=== PATIENT | male | born 1970 | race Caucasian/White ===

== ENCOUNTER 2020-09-22 07:54 | Outpatient (REF) | payer OTHER, SELFPAY ==
[2020-09-22 09:44] LABS: MANUAL DIFF FLAG NO
[2020-09-22 09:56] LABS: Basophils Percent Auto 0.4 % (0-2); Eosinophils Absolute Auto 0.1 X10*3/uL (0.0-0.4); Eosinophils Percent Auto 1.3 % (0-4); Hematocrit 43.7 % (42-52); Hemoglobin 13.9 g/dl (14.0-18.0); Imm Gran Abs Auto 0.01 X10*3/uL (0.00-0.03); Imm Gran Pct Auto 0.2 % (0.0-0.4); Lymphocytes Absolute Auto 1.7 X10*3/uL (1.2-4.9); Lymphocytes Percent Auto 37.3 % (20-40); Mean Corpuscular HGB Conc 31.8 g/dl (31.0-36.0); Mean Corpuscular Hemoglobin 28.8 pg (27.0-33.0); Mean Corpuscular Volume 90.5 fL (80-98); Mean Platelet Volume 11.3 fL (9.4-12.4); Monocytes Absolute Auto 0.5 X10*3/uL (0.1-1.2); Monocytes Percent Auto 10.2 % (2-11); Neutrophils Absolute Auto 2.3 X10*3/uL (2.0-8.3); Neutrophils Percent Auto 50.6 % (45-73); Platelet Count 170 X10*3/uL (160-400); Red Blood Count 4.83 X10*6/uL (4.60-5.80); White Blood Count 4.5 X10*3/uL (4.8-10.8)
[2020-09-22 10:14] LABS: Alanine Aminotransferase 16 U/L (0-40); Albumin Level 4.5 g/dL (3.5-5.0); Alkaline Phosphatase 115 U/L (39-117); Anion Gap 14 (12-20); Aspartate Amino Transferase 17 U/L (5-37); Bilirubin Total 0.8 mg/dL (0.0-1.0); Blood Urea Nitrogen 17 mg/dL (9-16); Calcium 9.9 mg/dL (8.4-10.2); Carbon Dioxide 27 mmol/L (22-29); Chloride 105 mmol/L (96-108); Cholesterol 152 mg/dL; Estimated Glomerular Filt Rate > 60; Glucose Random 91 mg/dL (60-115); HDL Cholesterol 62 mg/dL; LDL Cholesterol Calculated 84 mg/dl; Potassium 4.7 mmol/L (3.3-5.1); Sodium 141 mmol/L (135-145); Total Protein 6.9 g/dL (6.5-8.0); Triglycerides 34 mg/dL
[2020-09-22 10:22] LABS: Iron 110 mcg/dL (45-160); Percent Iron Saturation 37 % (15-50); Total Iron Binding Capacity 300 mcg/dL (228-428); Unsaturated Iron Binding 190 ug/dL
[2020-09-22 10:24] LABS: Vitamin D 25-OH Total 37.4 ng/mL (>30)
[2020-09-22 10:27] LABS: Uric Acid 7.6 mg/dL (3.4-7.0)
[2020-09-22 10:35] LABS: Prostate Specific Antigen Scr 0.09 ng/mL (<0.05-4.0); Thyroid Stimulating Hormone 1.59 uIU/mL (0.32-4.0)
[2020-09-22 10:36] LABS: Folate 12.9 ng/mL (> or = 4.0); Vitamin B12 225 pg/mL (200-900)
[2020-09-22 10:36] LABS: Creatinine Urine 19.83 mg/dL; Total Protein Urine Random < 7 mg/dL (<12)
== END 2020-09-22 07:55 | disposition home or self-care (01) ==
LOC: HO.LAB 07:54
PROVIDERS: Absent Provider Internal Medicine; PCP Internal Medicine; Visit Provider Internal Medicine Nephrology
DX: E66.9 Obesity, unspecified (principal); E78.00 Pure hypercholesterolemia, unspecified; R80.9 Proteinuria, unspecified; Z12.5 Encounter for screening for malignant neoplasm of prostate
CPT/HCPCS: 36415; 80053; 80061; 82306; 82607; 82746; 83540; 84153; 84156; 84439; 84443; 84550; 85025

== ENCOUNTER 2022-02-24 09:26 | Outpatient (REF) | payer OTHER, SELFPAY ==
[2022-02-24 09:40] LABS: MANUAL DIFF FLAG NO
[2022-02-24 10:21] LABS: Basophils Percent Auto 0.5 % (0-2); Eosinophils Absolute Auto 0.1 X10*3/uL (0.0-0.4); Eosinophils Percent Auto 1.4 % (0-4); Hematocrit 45.9 % (42.0-52.0); Hemoglobin 14.8 g/dl (14.0-18.0); Imm Gran Abs Auto 0.01 X10*3/uL (0.00-0.03); Imm Gran Pct Auto 0.2 % (0.0-0.4); Lymphocytes Absolute Auto 2.2 X10*3/uL (1.2-4.9); Lymphocytes Percent Auto 37.1 % (20-40); Mean Corpuscular HGB Conc 32.2 g/dl (31.0-36.0); Mean Corpuscular Hemoglobin 29.1 pg (27.0-33.0); Mean Corpuscular Volume 90.2 fL (80.0-98.0); Mean Platelet Volume 10.8 fL (9.4-12.4); Monocytes Absolute Auto 0.5 X10*3/uL (0.1-1.2); Monocytes Percent Auto 8.4 % (2-11); Neutrophils Percent Auto 52.4 % (45-73); Platelet Count 180 X10*3/uL (160-400); Red Blood Count 5.09 X10*6/uL (4.60-5.80); White Blood Count 5.8 X10*3/uL (4.8-10.8)
[2022-02-24 11:50] LABS: Alanine Aminotransferase 19 U/L (0-40); Alkaline Phosphatase 106 U/L (39-117); Anion Gap 12 (12-20); Aspartate Amino Transferase 18 U/L (5-37); Bilirubin Total 0.9 mg/dL (0.0-1.0); Blood Urea Nitrogen 24 mg/dL (9-16); Calcium 10.2 mg/dL (8.4-10.2); Carbon Dioxide 27 mmol/L (22-29); Chloride 106 mmol/L (96-108); Cholesterol 184 mg/dL; Estimated Glomerular Filt Rate > 60; Glucose Random 86 mg/dL (60-115); HDL Cholesterol 61 mg/dL; Potassium 4.6 mmol/L (3.3-5.1); Sodium 140 mmol/L (135-145)
[2022-02-24 12:02] LABS: Folate 13.6 ng/mL (> or = 4.0); Vitamin B12 256 pg/mL (200-900)
[2022-02-24 13:03] LABS: Albumin Level 4.7 g/dL (3.5-5.0); LDL Cholesterol Calculated 113 mg/dl; Triglycerides 54 mg/dL
[2022-02-24 13:28] LABS: Free T4 (Free Thyroxine) 1.03 ng/dL (0.71-1.85); Thyroid Stimulating Hormone 1.93 uIU/mL (0.32-4.0)
== END 2022-02-24 09:27 | disposition home or self-care (01) ==
LOC: HO.LAB 09:26
PROVIDERS: PCP Internal Medicine; Visit Provider Internal Medicine
DX: E66.9 Obesity, unspecified (principal); E78.00 Pure hypercholesterolemia, unspecified; Z12.5 Encounter for screening for malignant neoplasm of prostate
CPT/HCPCS: 36415; 80053; 80061; 82607; 82746; 84153; 84439; 84443; 85025

== ENCOUNTER 2022-09-27 16:59 | Outpatient (AMB) | payer OTHER, SELFPAY ==
[2022-09-27 17:08] VITALS: BP 134/72; PULSE 59; O2SAT 98; BMI 34.3
--- NOTE | 2022-09-27 17:08 | A.OFFPC_ITS ---
Vital Signs 09/27/22 17:08 Height 5 ft 11 in Weight 246 lb BMI 34.3 BP 134/72 Blood Pressure Location Lt brachial Position Sitting Pulse 59 Pulse Source Pulse Oximeter Pulse Oximetry (%) 98 Oxygen Delivery Method Room Air Intake Visit Reasons: Annual Physical Allergies No Known Allergies [No Known Allergies*] Allergy (Verified 09/27/22 17:09) Medication List - Last Reconciled 09/27/22 by Jaspreet Chowdhury MD cholecalciferol (vitamin D3) 1,250 mcg PO QWEEK cyanocobalamin (vitamin B-12) 1,000 mcg PO DAILY tramadol 50 mg PO BID PRN Tobacco use date assessed: 03/29/22 Dental Screening Dental Screen Date: 09/27/22 Did you have a dental visit in the last 12 months?: Yes Did you have a dental problem in the last 6 months where you did not have access to dental care?: No Was dental information given to patient?: Patient has dentist HPI Annual Physical HPI Details 52-year-old obese male with osteoarthritis of the knee and hip and vitamin B12 deficiency coming in for physical exam last seen in March 2022. noted 40 lbs [facility] Medical History (Updated 09/27/22 @ 17:11 by Jaspreet Chowdhury MD) Atrophy, kidney Bilateral inguinal hernia Congenital deformity Dextrocardia Hyperparathyroidism Hypertension Hypogonadism Migraine Obesity (BMI 30-39.9) Patellofemoral arthralgia of right knee Travel advice encounter Vitamin D deficiency Surgical History Hx of tonsillectomy Family History (Updated 09/27/22 @ 17:27 by Jaspreet Chowdhury MD) Maternal Grandmother Lung cancer Social History (Updated 09/27/22 @ 17:27 by Jaspreet Chowdhury MD) Housing: House Alcohol intake: current Alcohol intake frequency: holidays/special occasions only Patient Tobacco Use Status: Former Tobacco user Tobacco use type: Cigarette Years Smoked: quit 23 years old e-Cigarette/Vaping Use: Never Used Second Hand Smoke Exposure: No service: No Current occupational status: unemployed Cognitive needs: No Hearing needs: No Vision needs: Yes (wearing contacts) Questionnaire PHQ-9 Over the last 2 weeks, how often have you been bothered by any of the following problems? 1. Little interest or pleasure in doing things: not at all 2. Feeling down, depressed, or hopeless: not at all 3. Trouble falling or staying asleep, or sleeping too much: not at all 4. Feeling tired or having little energy: not at all 5. Poor appetite or overeating: not at all 6. Feeling bad about yourself - or that you are a failure or have let yourself or your family down: not at all 7. Trouble concentrating on things, such as reading the newspaper or watching television: not at all 8. Moving or speaking so slowly that other people could have noticed. Or the opposite - being so fidgety or restless that you have been moving around a lot more than usual: not at all 9. Thoughts that you would be better off or of hurting yourself in some wa y: not at all Total score: 0 Depression Screening Interpretation: Negative Source: Developed by Drs. Fito Lewis, Juliana Weldon, Ari Jimenez and colleagues, with an educational mary jane from [employer]. Thrive Questionnaire Date Thrive assessed: 03/29/22 AUDIT C Alcohol Use Questionnaire (AUDIT-C) 1. How often do you have a drink containing alcohol?: Monthly or less 2. How many drinks containing alcohol do you have on a typical day when you are drinking?: 1 or 2 3. How often do you have six or more drinks on one occasion?: Never Total Score: 1 JASON-7 AMB Questionnaire JASON-7 Date JASON - 7 assessed: 03/29/22 Source: Developed by Drs. Fito Lewis, Juliana Weldon, Ari Jimenez and colleagues, with an educational mary jane from [employer]. Review of Systems Const Denies poor appetite and Denies weakness Eyes Denies no additional complaints ENT Reports Normal hearing present, Denies dizziness, Denies nasal congestion, Denies tinnitus and Denies sore throat Card Denies chest pain, Denies syncope, Denies rapid heart rate and Denies dyspnea Resp Denies cough and Denies dyspnea GI Denies change in stool character, Reports constipation, Denies diarrhea, Denies nausea and Denies vomiting Denies dysuria and Denies urinary frequency Neuro Reports Normal hearing present, Denies confusion, Denies dizziness, Denies syncope and Denies weakness Psych Denies confusion Physical exam (Primary Care) Vital Signs: Last Vital Signs Pulse 59 09/27/22 17:08 BP 134/72 09/27/22 17:08 Pulse Ox 98 09/27/22 17:08 Oxygen Delivery Method Room Air 09/27/22 17:08 BMI result Body Mass Index 34.3 Tobacco/Smoking Status: Tobacco use Status Tobacco use date assessed 03/29/22 09/27/22 17:11 Patient Tobacco Use Status Former Tobacco user 09/27/22 17:11 Tobacco use type Cigarette 09/27/22 17:11 e-Cigarette/Vaping Use Never Used 09/27/22 17:11 PHQ-9: PHQ-9 Score PHQ-9: Total score 0 09/27/22 17:11 Depression Screening Interpretation: Negative Thrive Assessment: Date of Thrive Assessment Date Thrive assessed 03/29/22 09/27/22 17:11 Const General: No confusion Orientation/consciousness: No confusion HENMT Head: Yes normocephalic Ears: external ears normal and TM's normal bilaterally Face and sinus: Yes normal facial exam Mouth: moist mucous membranes Throat: Yes tonsils normal Eyes Conjunctivae: conjunctivae normal Pupils: Equal, round and reactive pupils present and Pupil accommodation reflex normal Direct Ophthalmoscopy: normal light reflex Neck Neck: No lymphadenopathy Thyroid: Thyroid normal Chest Chest palpation & inspection: normal inspection of the chest Resp Effort & Inspection: normal respiratory effort and no audible wheezes Auscultation: clear to auscultation bilaterally, no crackles, no wheezes and lung sounds not diminished Cardio Rate: regular rate Rhythm: regular rhythm Peripheral pulses: radial pulses present and dorsalis pedis present GI Other: guaiac negative prostate N Palpation (GI): no masses Auscultation: normal bowel sounds and normoactive bowel sounds Male General Exam: Yes normal external exam Skin General skin exam: no rashes or lesions noted Rashes: no rashes Neuro General: No confusion Cranial nerves: Yes Equal, round and reactive pupils present and Yes Normal hearing present Cognition (Neuro): normal cognition Gait exam (Neuro): Normal gait present Motor exam (neuro): 5/5 motor strength present throughout Deep tendon reflexes (DTR's): Right brachioradialis reflex intensity grade: 2+, Left brachioradialis reflex intensity grade: 2+, Right patellar reflex intensity grade: 2+ and Left patellar reflex intensity grade: 2+ Extrem General: No edema Assessment and Plan Assessment & Plan (1) Annual physical exam: Code(s): Z00.00 - Encounter for general adult medical examination without abnormal findings (2) Obesity (BMI 30-39.9): Code(s): E66.9 - Obesity, unspecified Plan: Diet and exercise (3) Vitamin B 12 deficiency: Code(s): E53.8 - Deficiency of other specified B group vitamins Plan: Continue with cyanocobalamin 1000 mcg once a day (4) Osteoarthritis: Code(s): M19.90 - Unspecified osteoarthritis, unspecified site Plan: Keep active lose weight, tramadol as needed Orders: Orders Vitamin B12 and Folate 4 Months E53.8 - Deficiency of other specified B group vitamins Comprehensive Met. Panel 4 Months E53.8 - Deficiency of other specified B group vitamins Lipid Panel 4 Months E53.8 - Deficiency of other specified B group vitamins, E78.00 - Pure hypercholesterolemia, unspecified Prostate Specific Antigen Scr 4 Months E53.8 - Deficiency of other specified B group vitamins Free T4 (Free Thyroxine) 4 Months E53.8 - Deficiency of other specified B group vitamins Thyroid Stimulating Hormone 4 Months E53.8 - Deficiency of other specified B group vitamins Complete Blood Count Auto Diff 4 Months E53.8 - Deficiency of other specified B group vitamins Coding Level of Care Code Est Pt Prev Care 40-64y(50435) Diagnoses Annual physical exam Z00.00 Obesity (BMI 30-39.9) E66.9 Vitamin B 12 deficiency E53.8 Osteoarthritis M19.90
== END 2022-09-27 17:52 | disposition home or self-care (01) ==
PROVIDERS: PCP Internal Medicine; Visit Provider Internal Medicine
DX: Z00.00 Encounter for general adult medical examination without abnormal findings (principal); E66.9 Obesity, unspecified; E53.8 Deficiency of other specified B group vitamins; Z68.34 Body mass index [BMI] 34.0-34.9, adult; M19.90 Unspecified osteoarthritis, unspecified site
CPT/HCPCS: 99396

== ENCOUNTER 2023-06-13 08:52 | Outpatient (REF) | payer OTHER, SELFPAY ==
[2023-06-13 09:13] LABS: MANUAL DIFF FLAG NO
[2023-06-13 10:48] LABS: Basophils Percent Auto 0.4 % (0-2); Eosinophils Absolute Auto 0.1 X10*3/uL (0.0-0.4); Eosinophils Percent Auto 1.5 % (0-4); Hematocrit 44.1 % (42.0-52.0); Hemoglobin 14.7 g/dl (14.0-18.0); Imm Gran Abs Auto 0.01 X10*3/uL (0.00-0.03); Imm Gran Pct Auto 0.2 % (0.0-0.4); Lymphocytes Absolute Auto 2.1 X10*3/uL (1.2-4.9); Lymphocytes Percent Auto 39.7 % (20-40); Mean Corpuscular HGB Conc 33.3 g/dl (31.0-36.0); Mean Corpuscular Hemoglobin 30.1 pg (27.0-33.0); Mean Corpuscular Volume 90.2 fL (80.0-98.0); Mean Platelet Volume 11.2 fL (9.4-12.4); Monocytes Absolute Auto 0.5 X10*3/uL (0.1-1.2); Monocytes Percent Auto 8.7 % (2-11); Neutrophils Absolute Auto 2.7 x10*3/uL (2.0-8.3); Neutrophils Percent Auto 49.5 % (45-73); Platelet Count 182 X10*3/uL (160-400); Red Blood Count 4.89 X10*6/uL (4.60-5.80); Red Cell Distribution Width 12.8 % (11.0-16.0); White Blood Count 5.4 X10*3/uL (4.8-10.8)
[2023-06-13 11:22] LABS: Alanine Aminotransferase 22 U/L (0-40); Albumin Level 4.4 g/dL (3.5-5.0); Alkaline Phosphatase 113 U/L (39-117); Anion Gap 11 (12-20); Aspartate Amino Transferase 17 U/L (5-37); Bilirubin Total 0.5 mg/dL (0.0-1.0); Blood Urea Nitrogen 31 mg/dL (9-16); Calcium 9.9 mg/dL (8.4-10.2); Carbon Dioxide 26 mmol/L (22-29); Chloride 107 mmol/L (96-108); Cholesterol 147 mg/dL (<200); Estimated Glomerular Filt Rate > 60; Glucose Random 86 mg/dL (60-115); HDL Cholesterol 54 mg/dL (>40); LDL Cholesterol Calculated 85 mg/dL (<100); Potassium 4.2 mmol/L (3.3-5.1); Sodium 140 mmol/L (135-145); Triglycerides 42 mg/dL (<150)
[2023-06-13 11:37] LABS: Free T4 (Free Thyroxine) 0.94 ng/dL (0.71-1.85); Thyroid Stimulating Hormone 1.28 uIU/mL (0.32-4.0)
[2023-06-13 11:58] LABS: Folate 11.7 ng/mL (> or = 4.0); Prostate Specific Antigen Scr < 0.10 ng/mL (<0.05-4.0); Vitamin B12 482 pg/mL (200-900)
== END 2023-06-13 08:53 | disposition home or self-care (01) ==
LOC: HO.LAB 08:52
PROVIDERS: PCP Internal Medicine; Visit Provider Internal Medicine
DX: E53.8 Deficiency of other specified B group vitamins (principal); E78.00 Pure hypercholesterolemia, unspecified; Z12.5 Encounter for screening for malignant neoplasm of prostate
CPT/HCPCS: 36415; 80053; 80061; 82607; 82746; 84153; 84439; 84443; 85025

== ENCOUNTER 2023-06-24 08:33 | Outpatient (AMB) | payer OTHER, SELFPAY ==
--- NOTE | 2023-06-24 08:37 | A.OFFPC_ITS ---
Vital Signs 06/24/23 08:38 06/24/23 08:58 Height 5 ft 11 in Weight 256 lb BMI 35.7 BP 140/80 H 130/78 Blood Pressure Location Lt brachial Lt brachial Position Sitting Sitting Pulse 57 Pulse Source Pulse Oximeter Pulse Oximetry (%) 97 Oxygen Delivery Method Room Air Intake Visit Reasons: 6 month follow Picker And Packer Required: No Allergies No Known Allergies [No Known Allergies*] Allergy (Verified 06/24/23 08:38) Medication List - Last Reconciled 06/24/23 by Jaspreet Chowdhury MD B-complex with vitamin C 1 cap PO DAILY calcium carbonate (Calcium 600) 600 mg PO DAILY cholecalciferol (vitamin D3) 125 mcg PO DAILY cyanocobalamin (vitamin B-12) 1,000 mcg PO DAILY multivitamin 1 tab PO DAILY tramadol 50 mg PO BID PRN Tobacco use date assessed: 06/24/23 Dental Screening Dental Screen Date: 06/24/23 HPI 6 month follow HPI Details 52-year-old obese male with osteoarthrit is and vitamin B12 deficiency last seen for physical exam in September 2022. Patient's colonoscopy is up-to-date in November 2019. Review of the notes last April was seen by the arthritis treatment center due to the right shoulder pain osteoarthritis tendonitis advise d to monitor and refill on tramadol [facility] Medical History (Updated 09/27/22 @ 17:11 by Jaspreet Chowdhury MD) Bilateral inguinal hernia Dextrocardia Congenital deformity Hyperparathyroidism Migraine Hypertension Patellofemoral arthralgia of right knee Obesity (BMI 30-39.9) Hypogonadism Atrophy, kidney Vitamin D deficiency Travel advice encounter Surgical History Hx of tonsillectomy Family History (Updated 09/27/22 @ 17:27 by Jaspreet Chowdhury MD) Maternal Grandmother Lung cancer Social History (Updated 09/27/22 @ 17:27 by Jaspreet Chowdhury MD) Housing: House Alcohol intake: current Alcohol intake frequency: holidays/special occasions only Patient Tobacco Use Status: Former Tobacco user Tobacco use type: Cigarette Years Smoked: quit 23 years old e-Cigarette/Vaping Use: Never Used Second Hand Smoke Exposure: No service: No Current occupational status: unemployed Cognitive needs: No Hearing needs: No Vision needs: Yes (wearing contacts) Questionnaire Thrive Questionnaire Date Thrive assessed: 03/29/22 AUDIT C Alcohol Use Questionnaire (AUDIT-C) 1. How often do you have a drink containing alcohol?: Monthly or less 2. How many drinks containing alcohol do you have on a typical day when you are drinking?: 1 or 2 3. How often do you have six or more drinks on one occasion?: Never Total Score: 1 JASON-7 AMB Questionnaire JASON-7 Date JASON - 7 assessed: 06/24/23 Feeling nervous, anxious, or on edge: 0 = Not at all Not being able to stop or control worryin = Not at all Worrying too much about different things: 0 = Not at all Trouble relaxin = Not at all Being so restless that it is hard to sit still: 0 = Not at all Becoming easily annoyed or irritable: 0 = Not at all Feeling afraid as if something awful might happen: 0 = Not at all Total JASON-7 score (0-4 normal; 5-9 mild; 10-14 moderate; 15-21 severe): 0 Source: Developed by Drs. Fito Lewis, Juliana Weldon, Ari Jimenez and colleagues, with an educational mary jane from [employer]. Physical exam (Primary Care) Vital Signs: Last Vital Signs Pulse 57 06/24/23 08:38 BP 140/80 H 06/24/23 08:38 Pulse Ox 97 06/24/23 08:38 Oxygen Delivery Method Room Air 06/24/23 08:38 BMI result Body Mass Index 35.7 Tobacco/Smoking Status: Tobacco use Status Tobacco use date assessed 06/24/23 06/24/23 08:41 Patient Tobacco Use Status Former Tobacco user 06/24/23 08:41 Tobacco use type Cigarette 06/24/23 08:41 e-Cigarette/Vaping Use Never Used 06/24/23 08:41 Thrive Assessment: Date of Thrive Assessment Date Thrive assessed 03/29/22 06/24/23 08:41 Const General: alert; No acute distress Eyes Conjunctivae: conjunctivae normal Resp Auscultation: clear to auscultation bilaterally Cardio Rate: regular rate Rhythm: regular rhythm GI Inspection: Yes normal to inspection Extrem General: Yes normal to inspection and No edema Assessment and Plan Assessment & Plan (1) Obesity (BMI 30-39.9): Code(s): E66.9 - Obesity, unspecified Plan: Diet and exercise (2) Osteoarthritis: Code(s): M19.90 - Unspecified osteoarthritis, unspecified site Plan: Patient is presently on tramadol. Follows up with Rheumatology recently complained of shoulder pain (3) Vitamin B 12 deficiency: Code(s): E53.8 - Deficiency of other specified B group vitamins Plan: Vitamin B12 normal this time. Coding Level of Care Code Est Pt Level 4 (19164) Diagnoses Obesity (BMI 30-39.9) E66.9 Osteoarthritis M19.90 Vitamin B 12 deficiency E53.8
[2023-06-24 08:38] VITALS: BP 140/80; PULSE 57; O2SAT 97; BMI 35.7
[2023-06-24 08:58] VITALS: BP 130/78
== END 2023-06-24 09:12 | disposition home or self-care (01) ==
PROVIDERS: PCP Internal Medicine; Visit Provider Internal Medicine
DX: M19.90 Unspecified osteoarthritis, unspecified site (principal); E66.9 Obesity, unspecified; E53.8 Deficiency of other specified B group vitamins; Z68.35 Body mass index [BMI] 35.0-35.9, adult
CPT/HCPCS: 99214

== ENCOUNTER 2023-09-29 16:08 | Outpatient (AMB) | payer BC, SELFPAY ==
--- NOTE | 2023-09-29 16:23 | MHC.PC.OV ---
Vital Signs 09/29/23 16:26 Height 5 ft 11 in Weight 260 lb BMI 36.3 BP 136/78 Blood Pressure Location Lt brachial Position Sitting Pulse 70 Pulse Source Pulse Oximeter Pulse Oximetry (%) 96 Oxygen Delivery Method Room Air Intake Visit Reasons: pe Allergies No Known Allergies [No Known Allergies*] Allergy (Verified 09/29/23 16:26) Medication List - Last Reconciled 09/29/23 by Jaspreet Chowdhury MD B-complex with vitamin C 1 cap PO DAILY calcium carbonate (Calcium 600) 600 mg PO DAILY cholecalciferol (vitamin D3) 125 mcg PO DAILY cyanocobalamin (vitamin B-12) 1,000 mcg PO DAILY multivitamin 1 tab PO DAILY tramadol 50 mg PO BID PRN Tobacco use date assessed: 06/24/23 Dental Screening Dental Screen Date: 06/24/23 Did you have a dental visit in the last 12 months?: Yes Did you have a dental problem in the last 6 months where you did not have access to dental care?: No Was dental information given to patient?: Patient has dentist HPI pe HPI Details 53-year-old obese male coming in for physical exam PFSH Medical History (Updated 09/27/22 @ 17:11 by Jaspreet Chowdhury MD) Bilateral inguinal hernia Dextrocardia Congenital deformity Hyperparathyroidism Migraine Hypertension Patellofemoral arthralgia of right knee Obesity (BMI 30-39.9) Hypogonadism Atrophy, kidney Vitamin D deficiency Travel advice encounter Surgical History Hx of tonsillectomy Family History (Updated 09/27/22 @ 17:27 by Jaspreet Chowdhury MD) Maternal Grandmother Lung cancer Social History (Updated 09/29/23 @ 17:29 by Jaspreet Chowdhury MD) Housing: House Alcohol intake: current Alcohol intake frequency: holidays/special occasions only Comment: once Q 2 week 1-2 glasses Patient Tobacco Use Status: Former Tobacco user Tobacco use type: Cigarette Years Smoked: quit 23 years old e-Cigarette/Vaping Use: Never Used Second Hand Smoke Exposure: No service: No Current occupational status: unemployed Cognitive needs: No Hearing needs: No Vision needs: Yes (wearing contacts) Questionnaire PHQ-9 Over the last 2 weeks, how often have you been bothered by any of the following problems? 1. Little interest or pleasure in doing things: not at all 2. Feeling down, depressed, or hopeless: not at all 3. Trouble falling or staying asleep, or sleeping too much: not at all 4. Feeling tired or having little energy: not at all 5. Poor appetite or overeating: not at all 6. Feeling bad about yourself - or that you are a failure or have let yourself or your family down: not at all 7. Trouble concentrating on things, such as reading the newspaper or watching television: not at all 8. Moving or speaking so slowly that other people could have noticed. Or the opposite - being so fidgety or restless that you have been moving around a lot more than usual: not at all 9. Thoughts that you would be better off or of hurting yourself in some way: not at all Total score: 0 Depression Screening Interpretation: Negative Depression Screening Done: Yes Source: Developed by Drs. Fito Lewis, Juliana Weldon, Ari Jimenez and colleagues, with an educational mary jane from [employer]. Thrive Questionnaire Date Thrive assessed: 09/29/23 I am a: Patient What is your living situation today?: I have a steady place to live THRIVE Score: 0 AUDIT C Alcohol Use Questionnaire (AUDIT-C) 1. How often do you have a drink containing alcohol?: Monthly or less 2. How many drinks containing alcohol do you have on a typical day when you are drinking?: 1 or 2 3. How often do you have six or more drinks on one occasion?: Never Total Score: 1 JASON-7 AMB Questionnaire JASON-7 Date JASON - 7 assessed: 09/29/23 Feeling nervous, anxious, or on edge: 0 = Not at all Not being able to stop or control worryin = Not at all Worrying too much about different things: 0 = Not at all Trouble relaxin = Not at all Being so restless that it is hard to sit still: 0 = Not at all Becoming easily annoyed or irritable: 0 = Not at all Feeling afraid as if something awful might happen: 0 = Not at all Total JASON-7 score (0-4 normal; 5-9 mild; 10-14 moderate; 15-21 severe): 0 Source: Developed by Drs. Fito Lewis, Juliana Weldon, Ari Jimenez and colleagues, with an educational mary jane from [employer]. Review of Systems Const Denies poor appetite and Denies weakness Eyes Denies no additional complaints ENT Reports Normal hearing present, Denies dizziness, Denies nasal congestion, Denies tinnitus and Denies sore throat Card Denies chest pain, Denies syncope, Denies rapid heart rate and Denies dyspnea Resp Denies cough and Denies dyspnea GI Denies change in stool character, Reports constipation, Denies diarrhea, Denies nausea and Denies vomiting Denies dysuria and Denies urinary frequency Neuro Reports Normal hearing present, Denies confusion, Denies dizziness, Denies syncope and Denies weakness Psych Denies confusion Physical exam (Primary Care) Vital Signs: Last Vital Signs Pulse 70 09/29/23 16:26 BP 136/78 09/29/23 16:26 Pulse Ox 96 09/29/23 16:26 Oxygen Delivery Method Room Air 09/29/23 16:26 BMI result Body Mass Index 36.3 Tobacco/Smoking Status: Tobacco use Status Tobacco use date assessed 06/24/23 09/29/23 16:23 Patient Tobacco Use Status Former Tobacco user 09/29/23 16:23 Tobacco use type Cigarette 09/29/23 16:23 e-Cigarette/Vaping Use Never Used 09/29/23 16:23 PHQ-9: PHQ-9 Score PHQ-9: Total score 0 09/29/23 16:37 Depression Screening Interpretation: Negative Thrive Assessment: Date of Thrive Assessment Date Thrive assessed 09/29/23 09/29/23 16:27 Const General: No confusion Orientation/consciousness: No confusion HENID Head: Yes normocephalic Ears: external ears normal and TM's normal bilaterally Face and sinus: Yes normal facial exam Mouth: moist mucous membranes Throat: Yes tonsils normal Eyes Conjunctivae: conjunctivae normal Pupils: Equal, round and reactive pupils present and Pupil accommodation reflex normal Direct Ophthalmoscopy: normal light reflex Neck Neck: No lymphadenopathy Thyroid: Thyroid normal Chest Chest palpation & inspection: normal inspection of the chest Resp Effort & Inspection: normal respiratory effort and no audible wheezes Auscultation: clear to auscultation bilaterally, no crackles, no wheezes and lung sounds not diminished Cardio Rate: regular rate Rhythm: regular rhythm Peripheral pulses: radial pulses present and dorsalis pedis present GI Other: Guaiac negative stools prostate not there. Palpation (GI): no masses Auscultation: normal bowel sounds and normoactive bowel sounds Male General Exam: Yes normal external exam Skin General skin exam: no rashes or lesions noted Rashes: no rashes Neuro General: No confusion Cranial nerves: Yes Equal, round and reactive pupils present and Yes Normal hearing present Cognition (Neuro): normal cognition Gait exam (Neuro): Normal gait present Motor exam (neuro): 5/5 motor strength present throughout Deep tendon reflexes (DTR's): Right brachioradialis reflex intensity grade: 2+, Left brachioradialis reflex intensity grade: 2+, Right patellar reflex intensity grade: 2+ and Left patellar reflex intensity grade: 2+ Extrem General: No edema Assessment and Plan Assessment & Plan (1) Annual physical exam: Code(s): Z00.00 - Encounter for general adult medical examination without abnormal findings Plan: Patient is advised to eat healthy, keep well hydrated, keep active and have adequate sleep. (2) Obesity (BMI 30-39.9): Code(s): E66.9 - Obesity, unspecified Plan: Keep active and eat healthy Orders: Orders Comprehensive Met. Panel 1 Year E66.9 - Obesity, unspecified Complete Blood Count Auto Diff 1 Year E66.9 - Obesity, unspecified Free T4 (Free Thyroxine) 1 Year E66.9 - Obesity, unspecified Thyroid Stimulating Hormone 1 Year E66.9 - Obesity, unspecified Vitamin B12 and Folate 1 Year E66.9 - Obesity, unspecified Lipid Panel 1 Year E66.9 - Obesity, unspecified, E78.00 - Pure hypercholesterolemia, unspecified Prostate Specific Antigen Scr 1 Year E66.9 - Obesity, unspecified Coding Level of Care Code Est Pt Prev Care 40-64y(06779) Diagnoses Annual physical exam Z00.00 Obesity (BMI 30-39.9) E66.9
[2023-09-29 16:26] VITALS: BP 136/78; PULSE 70; O2SAT 96; BMI 36.3
== END 2023-09-29 17:46 | disposition home or self-care (01) ==
PROVIDERS: PCP Internal Medicine; Visit Provider Internal Medicine
DX: Z00.00 Encounter for general adult medical examination without abnormal findings (principal); E66.9 Obesity, unspecified; Z68.36 Body mass index [BMI] 36.0-36.9, adult
CPT/HCPCS: 99396

== ENCOUNTER 2023-11-23 08:57 | Outpatient (REF) | payer BC, SELFPAY ==
--- NOTE | ~2023-11-23 | XR_ITS ---
Examination: Left knee x-ray CLINICAL INDICATION: Osteoarthritis COMPARISON: None TECHNIQUE: 6 views of the left knee. FINDINGS: Moderate joint effusion. Small medial and lateral marginal osteophytes. Mild narrowing of the medial compartment. Advanced degenerative changes in the patellofemoral compartment with narrowing and hypertrophic change. Ossicles along the superolateral aspect of the patella and medial to the medial femoral condyle. XR/XR knee LT 4V IMPRESSION: Moderate joint effusion. Advanced degenerative changes in the patellofemoral compartment. This study was presented today November 23, 2023 for interpretation. Stat results provided at this time as requested by referring provider. Electronically signed by: Beth Wallace MD 11/23/2023 01:38 PM EDT
--- NOTE | ~2023-11-23 | XR_ITS ---
Examination: Left knee x-ray CLINICAL INDICATION: Osteoarthritis COMPARISON: None TECHNIQUE: 6 views of the left knee. FINDINGS: Moderate joint effusion. Small medial and lateral marginal osteophytes. Mild narrowing of the medial compartment. Advanced degenerative changes in the patellofemoral compartment with narrowing and hypertrophic change. Ossicles along the superolateral aspect of the patella and medial to the medial femoral condyle. XR/XR knee RT 4V IMPRESSION: Moderate joint effusion. Advanced degenerative changes in the patellofemoral compartment. This study was presented today November 23, 2023 for interpretation. Stat results provided at this time as requested by referring provider. Electronically signed by: Beth Wallace MD 11/23/2023 01:38 PM EDT RP
== END 2023-11-23 08:58 | disposition home or self-care (01) ==
LOC: HO.XRAY 08:57
PROVIDERS: PCP Internal Medicine; Visit Provider Internal Medicine Rheumatology
DX: M17.0 Bilateral primary osteoarthritis of knee (principal)
CPT/HCPCS: 73564

== ENCOUNTER 2024-03-08 08:39 | Outpatient (AMB) | payer BC, SELFPAY ==
[2024-03-08 08:51] VITALS: BP 138/80; PULSE 78; O2SAT 98; BMI 37.7
--- NOTE | 2024-03-08 08:51 | MHC.PC.OV ---
Vital Signs 03/08/24 08:51 Height 5 ft 11 in Weight 270 lb BMI 37.7 BP 138/80 Blood Pressure Location Lt brachial Position Sitting Pulse 78 Pulse Source Pulse Oximeter Pulse Oximetry (%) 98 Oxygen Delivery Method Room Air Intake Visit Reasons: med f/u Allergies No Known Allergies [No Known Allergies*] Allergy (Verified 03/08/24 08:51) Tobacco use date assessed: 03/08/24 Dental Screening Dental Screen Date: 03/08/24 Did you have a dental visit in the last 12 months?: Yes Did you have a dental problem in the last 6 months where you did not have access to dental care?: No Was dental information given to patient?: Patient has dentist HPI med f/u HPI Details 53-year-old obese male with bilateral knee pain coming in for follow-up. Last seen in November had some blood work done. Review of the notes has been seeing Rheumatology for the bilateral knee pain showing from the x-ray advanced degenerative disc disease with the left having moderate effusion. Patient was given tramadol for pain as well as Voltaren gel. With that patient has been transfer back to the primary care to do the pain control. Had discussion with the patient with regards to the arthritis that this is progressive and that pain control is the only way and that if the pain gets to be severe then surgery or knee replacements are done. Presently patient wants to hold off has had injections before which became temporary relief only and would like to continue on with tramadol pain medication. Otherwise patient is active and eating responsibly. [facility] Medical History (Updated 03/08/24 @ 09:18 by Jaspreet Chowdhury MD) Bilateral inguinal hernia Dextrocardia Congenital deformity Hyperparathyroidism Migraine Hypertension Patellofemoral arthralgia of right knee Obesity (BMI 30-39.9) Hypogonadism Atrophy, kidney Vitamin D deficiency Travel advice encounter Surgical History Hx of tonsillectomy Family History (Updated 09/27/22 @ 17:27 by Jaspreet Chowdhury MD) Maternal Grandmother Lung cancer Social History (Updated 09/29/23 @ 17:29 by Jaspreet Chowdhury MD) Housing: House Alcohol intake: current Alcohol intake frequency: holidays/special occasions only Comment: once Q 2 week 1-2 glasses Patient Tobacco Use Status: Former Tobacco user Tobacco use type: Cigarette Years Smoked: quit 23 years old e-Cigarette/Vaping Use: Never Used Second Hand Smoke Exposure: No service: No Current occupational status: unemployed Cognitive needs: No Hearing needs: No Vision needs: Yes (wearing contacts) Questionnaire PHQ-9 Over the last 2 weeks, how often have you been bothered by any of the following problems? 1. Little interest or pleasure in doing things: not at all 2. Feeling down, depressed, or hopeless: not at all 3. Trouble falling or staying asleep, or sleeping too much: not at all 4. Feeling tired or having little energy: not at all 5. Poor appetite or overeating: not at all 6. Feeling bad about yourself - or that you are a failure or have let yourself or your family down: not at all 7. Trouble concentrating on things, such as reading the newspaper or watching television: not at all 8. Moving or speaking so slowly that other people could have noticed. Or the opposite - being so fidgety or restless that you have been moving around a lot more than usual: not at all 9. Thoughts that you would be better off or of hurting yourself in some way: not at all Total score: 0 Depression Screening Interpretation: Negative Depression Screening Done: Yes Source: Developed by Drs. Fito Lewis, Juliana Weldon, Ari Jimenez and colleagues, with an educational mary jane from [employer]. Thrive Questionnaire Date Thrive assessed: 03/08/24 I am a: Patient What is your living situation today?: I have a steady place to live Within the past 12 months, did the food you bought not last and you didn't have the money to get more?: Never true Within the past 12 months, did you worry whether your food would run out before you got money to buy more?: Never true Do you have trouble paying for medicines?: No Do you have trouble getting transportation to medical appointments?: No Do you have trouble paying your heating and electricity bill?: No Do you have trouble taking care of your child, family member or friend?: No Do you have trouble with day-to-day activities such as bathing, preparing meals, shopping, managing finances, etc.?: No Are you currently unemployed and looking for a job?: No Are you interested in more education?: No Currently or been in a relationship where the following occur: No concerns reported THRIVE Score: 0 AUDIT C Alcohol Use Questionnaire (AUDIT-C) 1. How often do you have a drink containing alcohol?: Monthly or less 2. How many drinks containing alcohol do you have on a typical day when you are drinking?: 1 or 2 3. How often do you have six or more drinks on one occasion?: Never Total Score: 1 JASON-7 AMB Questionnaire JASON-7 Date JASON - 7 assessed: 03/08/24 Feeling nervous, anxious, or on edge: 0 = Not at all Not being able to stop or control worryin = Not at all Worrying too much about different things: 0 = Not at all Trouble relaxin = Not at all Being so restless that it is hard to sit still: 0 = Not at all Becoming easily annoyed or irritable: 0 = Not at all Feeling afraid as if something awful might happen: 0 = Not at all Total JASON-7 score (0-4 normal; 5-9 mild; 10-14 moderate; 15-21 severe): 0 Source: Developed by Drs. Fito Lewis, Juliana Weldon, rAi Jimenez and colleagues, with an educational mary jane from [employer]. Review of Systems Const Reports as per HPI Physical exam (Primary Care) Vital Signs: Last Vital Signs Pulse 78 03/08/24 08:51 BP 138/80 03/08/24 08:51 Pulse Ox 98 03/08/24 08:51 Oxygen Delivery Method Room Air 03/08/24 08:51 BMI result Body Mass Index 37.7 Tobacco/Smoking Status: Tobacco use Status Tobacco use date assessed 03/08/24 03/08/24 08:56 Patient Tobacco Use Status Former Tobacco user 03/08/24 08:56 Tobacco use type Cigarette 03/08/24 08:56 e-Cigarette/Vaping Use Never Used 03/08/24 08:56 PHQ-9: PHQ-9 Score PHQ-9: Total score 0 03/08/24 08:56 Depression Screening Interpretation: Negative Thrive Assessment: Date of Thrive Assessment Date Thrive assessed 03/08/24 03/08/24 08:56 Currently or been in a relationship where the following occur: No concerns reported Const General: alert; No acute distress Eyes Conjunctivae: conjunctivae normal Resp Auscultation: clear to auscultation bilaterally Cardio Rate: regular rate Rhythm: regular rhythm GI Inspection: Yes normal to inspection Extrem General: Yes normal to inspection and No edema Coding Level of Care Code Est Pt Level 3 (78831) Diagnoses Obesity (BMI 30-39.9) E66.9 Primary osteoarthritis of both knees M17.0 Osteoarthritis type: primary Laterality: bilateral Assessment & Plan Assessment & Plan (1) Obesity (BMI 30-39.9): Code(s): E66.9 - Obesity, unspecified Category: Medical Plan: Continue with diet and exercise (2) Knee osteoarthritis: Code(s): M17.9 - Osteoarthritis of knee, unspecified Category: Medical Qualifiers: Osteoarthritis type: primary Laterality: bilateral Qualified Code(s): M17.0 - Bilateral primary osteoarthritis of knee Plan: Discussed about tramadol and prescription made Medications: New tramadol Dr. White 50 mg PO Q6-8H PRN 180 tabs 0RF pain M17.0 - Bilateral primary osteoarthritis of knee
== END 2024-03-08 09:30 | disposition home or self-care (01) ==
PROVIDERS: PCP Internal Medicine; Visit Provider Internal Medicine
DX: M17.0 Bilateral primary osteoarthritis of knee (principal); E66.9 Obesity, unspecified; Z68.37 Body mass index [BMI] 37.0-37.9, adult

== ENCOUNTER 2024-06-08 08:14 | Outpatient (AMB) | payer BC, SELFPAY ==
--- OUTSIDE RECORDS SUMMARY | 2024-06-08 08:18 | XMS_ITS | Encounter Summary ---
Author Organization [facility], Address [address] [place] [address] Phone Care Team Providers Care Slide Attendant Name Role Phone Jaspreet Chowdhury MD Primary Care Provider [phone] Reason for Visit * Reason Comments Med Refill Encounter Details Date Type Department Care Team (Late st Contact Info) Description 12/17/2021 Refill [facility] [address] [place] [address] Shawn Price MD [facility] [address] [place] [id number] Social History Tobacco Use Types Packs/Day Years Used Date Smoking Tobacco: Former Cigarettes 0 10/13/1984 - 10/13/1989 Comments:Smoking History Inf o:Unknown Alcohol Use Standard Drinks/Week Comments Yes 0 (1 standard drink = 0.6 oz pure alcohol) Alcoholic Drinks/day: Occasional social drink Sex and Gender Information Value Date Recorded Sex Assigned at Male 11/06/2019 7:55 AM EDT Legal Sex Male 4:33 PM EST Gender Identity Male 11/06/2019 7:55 AM EDT Sexual Orientation [place]aley 11/06/2019 7: 55 AM EDT documented as of this encounter Plan of Treatment Not on file documented as of this encounter Visit Diagnoses Not on filedocumented in this encounter Care Teams Slide Attendant Relationship Specialty Start Date End Date Jaspreet Chowdhury MD [facility] [address] [place], [place] PCP - General 12/19/18 documented as of this encounter
--- OUTSIDE RECORDS SUMMARY | 2024-06-08 08:18 | XMS_ITS | Clinical Summary ---
Author Organization [facility], Address [address] [place] [address] Phone Care Team Providers Care Alumin[employer]rication Supervisor Name Role Phone Jaspreet Chowdhury MD Primary Care Provider [phone] Allergies No known active allergies Medications traMADol (ULTRAM) 50 MG tablet Active ergocalciferol 1.25 MG (04513 UT) capsule TAKE 1 CAPSULE BY MOUTH ONE TIME PER WEEK 12 capsule 3 01/03/2023 Active Active Problems Problem Noted Date Diagnosed Date History of microalbuminuria 11/04/2020 Hyperuricemia 11/04/2020 Hypertriglyceridemia 11/07/2019 Stage 3a chronic kidney disease 11/07/2019 Essential (primary) hypertension 03/08/2019 Resolved Problems Problem Noted Date Diagnosed Date Resolved Date Hypothyroidism 11/07/2019 11/02/2020 Gout 11/07/2019 11/02/2020 Microalbuminuria 03/08/2019 11/02/2020 Immunizations Immunization Administration Dates Next Due Influenza, Quadrivalent, Preservative Free 10/19 Influenza, Unspecified 10/20/2019 Family History Medical History Relation Comments Cancer Mother grand mother Stroke Mother aunt Diabetes Sibling Relation Status Comments Father Unknown Mother Unknown Sibling Social History Tobacco Use Types Packs/Day Years [...] Orientation [place]aley 11/06/2019 7: 55 AM EDT Last Filed Vital Signs Vital Sign Reading Time Taken Comments Blood Pressure 122/70 03/08/2019 4:56 PM EST Pulse 74 03/08/2019 4:56 PM EST Temperature - - Respiratory Rate 16 08/07/2018 12:00 PM EDT Oxygen Saturation - - Inhaled Oxygen Concentration - - Weight 117 kg (258 lb) 03/08/2019 4:56 PM EST Height 185 cm (6' 0.84 ) 03/08/2019 4:56 PM EST Body Mass Index 34.19 03/08/2019 4:56 PM EST Plan of Treatment Health Maintenance Due Date Last Done Comments Hepatitis B Vaccine (1 of 3 - 19+ 3-dose series) 09/18/1987 Pneumococcal Vaccine: 50+ Ye ars (1 of 2 - PCV) 09/18/1987 Colorectal Cancer Screening: Annual FOBT 2017 Colorectal Cancer Screening: Colonoscopy 2017 Colorectal Cancer Screening: Sigmoidoscopy 2017 Influenza Vaccine (Season Ended) 2024 10/20/19 20, 10/20/2019 Insurance [employer] Commercial Care Teams Al[employer] Supervisor Relationship Specialty Start Date End Date Jaspreet Chowdhury MD [facility] [address] [place] PCP - General 12/19/18
[2024-06-08 08:20] VITALS: BP 138/88; PULSE 74; O2SAT 98; BMI 38.8
--- NOTE | 2024-06-08 08:20 | MHC.PC.OV ---
Vital Signs 06/08/24 08:20 Height 5 ft 11 in Weight 278 lb BMI 38.8 BP 138/88 Blood Pressure Location Lt brachial Position Sitting Pulse 74 Pulse Source Pulse Oximeter Pulse Oximetry (%) 98 Oxygen Delivery Method Room Air Intake Visit Reasons: knee OA Allergies No Known Allergies [No Known Allergies*] Allergy (Verified 06/08/24 08:20) Tobacco use date assessed: 03/08/24 Dental Screening Dental Screen Date: 03/08/24 PFSH Medical History (Updated 03/08/24 @ 09:18 by Jaspreet Chowdhury MD) Bilateral inguinal hernia Dextrocardia Congenital deformity Hyperparathyroidism Migraine Hypertension Patellofemoral arthralgia of right knee Obesity (BMI 30-39.9) Hypogonadism Atrophy, kidney Vitamin D deficiency Travel advice encounter Surgical History Hx of tonsillectomy Family History (Updated 09/27/22 @ 17:27 by Jaspreet Chowdhury MD) Maternal Grandmother Lung cancer Social History (Updated 09/29/23 @ 17:29 by Jaspreet Chowdhury MD) Housing: House Alcohol intake: current Alcohol intake frequency: holidays/special occasions only Comment: once Q 2 week 1-2 glasses Patient Tobacco Use Status: Former Tobacco user Tobacco use type: Cigarette Years Smoked: quit 23 years old e-Cigarette/Vaping Use: Never Used Second Hand Smoke Exposure: No service: No Current occupational status: unemployed Cognitive needs: No Hearing needs: No Vision needs: Yes (wearing contacts) Questionnaire Thrive Questionnaire Date Thrive assessed: 03/08/24 AUDIT C Alcohol Use Questionnaire (AUDIT-C) 2. How many drinks containing alcohol do you have on a typical day when you are drinking?: 1 or 2 3. How often do you have six or more drinks on one occasion?: Never Total Score: 0 JASON-7 AMB Questionnaire JASON-7 Date JASON - 7 assessed: 03/08/24 Source: Developed by Drs. Fito Lewis, Juliana Weldon, Ari Jimenez and colleagues, with an educational mary jane from [employer]. Physical exam (Primary Care) Vital Signs: Last Vital Signs Pulse 74 06/08/24 08:20 BP 138/88 06/08/24 08:20 Pulse Ox 98 06/08/24 08:20 Oxygen Delivery Method Room Air 06/08/24 08:20 BMI result Body Mass Index 38.8 Tobacco/Smoking Status: Tobacco use Status Tobacco use date assessed 03/08/24 06/08/24 08:21 Patient Tobacco Use Status Former Tobacco user 06/08/24 08:21 Tobacco use type Cigarette 06/08/24 08:21 e-Cigarette/Vaping Use Never Used 06/08/24 08:21 Thrive Assessment: Date of Thrive Assessment Date Thrive assessed 03/08/24 06/08/24 08:21 Const General: alert; No acute distress Eyes Conjunctivae: conjunctivae normal Resp Auscultation: clear to auscultation bilaterally Cardio Rate: regular rate Rhythm: regular rhythm GI Inspection: Yes normal to inspection Extrem General: Yes normal to inspection and No edema Coding Level of Care Code Est Pt Level 3 (34765) Diagnoses Obesity (BMI 30-39.9) E66.9 Primary osteoarthritis of both knees M17.0 Laterality: bilateral Osteoarthritis type: primary Assessment & Plan Assessment & Plan (1) Obesity (BMI 30-39.9): Code(s): E66.9 - Obesity, unspecified Category: Medical Plan: Diet And exercise (2) Knee osteoarthritis: Code(s): M17.9 - Osteoarthritis of knee, unspecified Category: Medical Qualifiers: Laterality: bilateral Osteoarthritis type: primary Qualified Code(s): M17.0 - Bilateral primary osteoarthritis of knee Plan: Patient on tramadol for pain and the need for losing weight Plan History of Present Illness The patient is a 53 year old male presenting with follow-up for knee osteoarthritis. Historically, the patient has experienced advanced degenerative changes in the knee, specifically affecting the medial and patellofemoral compartments on the right, with similar but moderate effusion on the left. Previous x-rays have highlighted these changes. In managing his condition, the patient is engaged in a structured exercise routine designed by a new corporate trainer, who is favoring a basic approach to exercises to ensure proper technique and reduce the risk of injury. This is in response to the variability in knee symptoms, with the patient reporting days where the knee feels more crunchy. For pain management, the patient uses tramadol and is focusing on weight management as a non-pharmacological intervention to alleviate stress on the knee joints. Health Maintenance - Up to date with colonoscopy. - Regular exercise routine with a corporate trainer. - Blood work last performed in May 2023, showing normal results and checks, including cholesterol, prostate, B12, folate, and thyroid levels this is part of an ongoing health maintenance strategy. - Planning for fasting blood work in anticipation of an upcoming physical exam scheduled for October 08. Social History - Actively engaged in an exercise program with a new seeing eye dog trainer. - Weight management strategies in place as part of osteoarthritis management. - No mention of substance use or educational background. - Engages in activities with family, including visiting a sister. Review of Systems - Musculoskeletal: Reports variability in knee symptoms, including days where the knee feels crunchy . - Digestive: Denies any current digestive issues; colonoscopy is up to date. - Endocrine: Denies any issues; last known thyroid levels within normal limits. - Neurological: Reports feeling dizzy after certain exercises. - General: Reports experiencing delayed onset muscle soreness with new exercise routines, which he considers a normal adaptation to the training. Physical Exam - Musculoskeletal- Discussed advanced degenerative changes noted on previous knee x-rays, affecting the medial and patellofemoral compartments of the right knee, and the patellofemoral compartment of the left knee. Results - Labs: Last blood work in May 2023 showed normal blood counts, electrolytes, renal function, blood sugar, liver function, cholesterol, prostate number, B12, folate, and thyroid levels. - Imaging: Prior knee x-ray revealed advanced degenerative changes in the knee joints. Plan The management of knee osteoarthritis will involve maintaining the recently implemented exercise regimen, focusing on proper techniques to enhance joint health. The patient will continue with tramadol for analgesia and is advised to monitor for any changes in knee function or pain severity. Monitoring will include scheduled blood work to keep track of general health markers, ensuring they remain within normal limits before the physical examination on October 08. Aligned with patient preference, refills for tramadol will be facilitated via the electronic health record portal. Patient was informed and verbally consented to the use of an ambient scribe for clinic note documentation during this visit. Discussion Notes During the visit, we discussed the ongoing management of his knee osteoarthritis, highlighting the importance of maintaining activity levels and proper exercise techniques with his new seeing eye dog trainer. We reviewed the use of tramadol for pain management and the strategy for weight management to alleviate knee joint stress. We discussed the importance of monitoring symptoms of knee pain fluctuation and the potential need for further intervention if the symptoms worsen. The patient is comfortable with the proposed interventions and aware of how to manage medication refills using the health portal, considering previous challenges with contacting the office by phone. Patient Instructions - Continue your current exercise program with focus on correct techniques. - Take tramadol as prescribed for pain management. - Monitor any changes in knee pain or function; report any worsening symptoms. - Prepare for upcoming fasting blood work. - Ensure you complete this blood work prior to your physical examination on October 08. - Refills for medication can be requested via the health portal when necessary.
== END 2024-06-08 08:47 | disposition home or self-care (01) ==
LOC: HO.HMCH 08:14
PROVIDERS: PCP Internal Medicine; Visit Provider Internal Medicine
DX: M17.0 Bilateral primary osteoarthritis of knee (principal); E66.9 Obesity, unspecified; Z68.38 Body mass index [BMI] 38.0-38.9, adult

== ENCOUNTER → 2024-06-08 08:14 | Outpatient (BNVA) | payer BC, SELFPAY | PROVIDERS: PCP Internal Medicine; Visit Provider Internal Medicine ==

== ENCOUNTER 2024-08-06 08:57 | Outpatient (REF) | payer BC, SELFPAY ==
[2024-08-06 09:16] LABS: MANUAL DIFF FLAG NO
--- OUTSIDE RECORDS SUMMARY | 2024-08-06 09:32 | XMS_ITS | Clinical Summary ---
Author Organization [facility], Address [address] [place] [address] Phone Care Team Providers Care Operations Mgr Name Role Phone Jaspreet Chowdhury MD Primary Care Provider [phone] Allergies No known active allergies Medications traMADol (ULTRAM) 50 MG tablet Active ergocalciferol 1.25 MG (26232 UT) capsule TAKE 1 CAPSULE BY MOUTH [...] 20, 10/20/2019 Insurance [employer] Commercial Care Teams Operations Mgr Relationship Specialty Start Date End Date Jaspreet Chowdhury MD [facility] [place] [address] [place] PCP - General 12/19/18
[2024-08-06 09:37] LABS: Basophils Percent Auto 0.7 % (0-2); Eosinophils Absolute Auto 0.1 X10*3/uL (0.0-0.4); Eosinophils Percent Auto 1.6 % (0-4); Hematocrit 43.1 % (42.0-52.0); Hemoglobin 14.5 g/dl (14.0-18.0); Imm Gran Abs Auto 0.01 X10*3/uL (0.00-0.03); Imm Gran Pct Auto 0.2 % (0.0-0.4); Lymphocytes Absolute Auto 1.8 X10*3/uL (1.2-4.9); Lymphocytes Percent Auto 41.3 % (20-40); Mean Corpuscular HGB Conc 33.6 g/dl (31.0-36.0); Mean Corpuscular Hemoglobin 29.5 pg (27.0-33.0); Mean Corpuscular Volume 87.6 fL (80.0-98.0); Mean Platelet Volume 10.8 fL (9.4-12.4); Monocytes Absolute Auto 0.4 X10*3/uL (0.1-1.2); Monocytes Percent Auto 9.6 % (2-11); Neutrophils Percent Auto 46.6 % (45-73); Platelet Count 172 X10*3/uL (160-400); Red Blood Count 4.92 X10*6/uL (4.60-5.80); Red Cell Distribution Width 12.7 % (11.0-16.0); White Blood Count 4.3 X10*3/uL (4.8-10.8)
[2024-08-06 10:19] LABS: Alanine Aminotransferase 19 U/L (0-40); Albumin Level 4.6 g/dL (3.5-5.0); Alkaline Phosphatase 106 U/L (39-117); Anion Gap 14 (12-20); Aspartate Amino Transferase 20 U/L (5-37); Bilirubin Total 0.9 mg/dL (0.0-1.0); Blood Urea Nitrogen 21 mg/dL (9-16); Calcium 9.8 mg/dL (8.4-10.2); Carbon Dioxide 25 mmol/L (22-29); Chloride 107 mmol/L (96-108); Cholesterol 154 mg/dL (<200); Estimated Glomerular Filt Rate > 60; Glucose Random 93 mg/dL (60-115); HDL Cholesterol 54 mg/dL (>40); LDL Cholesterol Calculated 91 mg/dL (<100); Potassium 4.5 mmol/L (3.3-5.1); Sodium 141 mmol/L (135-145); Total Protein 6.9 g/dL (6.5-8.0); Triglycerides 48 mg/dL (<150)
[2024-08-06 10:34] LABS: Free T4 (Free Thyroxine) 1.03 ng/dL (0.71-1.85); Thyroid Stimulating Hormone 1.63 uIU/mL (0.32-4.0)
[2024-08-06 10:39] LABS: Prostate Specific Antigen Scr 0.11 ng/mL (<0.05-4.0); Vitamin B12 401 pg/mL (200-900)
== END 2024-08-06 08:58 | disposition home or self-care (01) ==
LOC: HO.LAB 08:57
PROVIDERS: PCP Internal Medicine; Visit Provider Internal Medicine
DX: Z12.5 Encounter for screening for malignant neoplasm of prostate (principal); E66.9 Obesity, unspecified; E78.00 Pure hypercholesterolemia, unspecified
CPT/HCPCS: 36415; 80053; 80061; 82607; 82746; 84153; 84439; 84443; 85025

== ENCOUNTER 2024-10-08 08:46 | Outpatient (AMB) | payer BC, SELFPAY ==
[2024-10-08 08:51] VITALS: BP 146/82; PULSE 66; O2SAT 94; BMI 37.7
--- NOTE | 2024-10-08 08:51 | MHC.PC.OV ---
Vital Signs 10/08/24 08:51 Height 5 ft 11 in Weight 270 lb BMI 37.7 BP 146/82 H Blood Pressure Location Lt brachial Position Sitting Pulse 66 Pulse Source Pulse Oximeter Pulse Oximetry (%) 94 Oxygen Delivery Method Room Air Intake Visit Reasons: annual exam Cryptographic Vulnerability Analyst Required: No Accompanied by: Self / Same As Patient Allergies No Known Allergies (No Known Allergies*) Allergy (Verified 10/08/24 08:53) Medication List - Last Reconciled 10/08/24 by Jaspreet Chowdhury MD B-complex with vitamin C 1 cap PO DAILY calcium carbonate (Calcium 600) 600 mg PO DAILY cholecalciferol (vitamin D3) 125 mcg PO DAILY cyanocobalamin (vitamin B-12) 1,000 mcg PO DAILY multivitamin 1 tab PO DAILY tramadol 50 mg PO Q6-8H PRN Tobacco use date assessed: 10/08/24 Dental Screening Dental Screen Date: 10/08/24 Did you have a dental visit in the last 12 months?: Yes Did you have a dental problem in the last 6 months where you did not have access to dental care?: No Was dental information given to patient?: Patient has dentist [facility] Medical History Bilateral inguinal hernia Dextrocardia Congenital deformity Hyperparathyroidism Migraine Hypertension Patellofemoral arthralgia of right knee Obesity (BMI 30-39.9) Hypogonadism Atrophy, kidney Vitamin D deficiency Travel advice encounter Surgical History Hx of tonsillectomy Family History Maternal Grandmother Lung cancer Social History Housing: House Alcohol intake: current Alcohol intake frequency: holidays/special occasions only Comment: once Q 2 week 1-2 glasses Patient Tobacco Use Status: Former Tobacco user Tobacco use type: Cigarette Years Smoked: quit 23 years old e-Cigarette/Vaping Use: Never Used Second Hand Smoke Exposure: No service: No Current occupational status: unemployed Cognitive needs: No Hearing needs: No Vision needs: Yes (wearing contacts) Questionnaire PHQ-9 Over the last 2 weeks, how often have you been bothered by any of the following problems? 1. Little interest or pleasure in doing things: not at all 2. Feeling down, depressed, or hopeless: not at all 3. Trouble falling or staying asleep, or sleeping too much: not at all 4. Feeling tired or having little energy: not at all 5. Poor appetite or overeating: not at all 6. Feeling bad about yourself - or that you are a failure or have let yourself or your family down: not at all 7. Trouble concentrating on things, such as reading the newspaper or watching television: not at all 8. Moving or speaking so slowly that other people could have noticed. Or the opposite - being so fidgety or restless that you have been moving around a lot more than usual: not at all 9. Thoughts that you would be better off or of hurting yourself in some way: not at all Total score: 0 Source: Developed by Drs. Fito Lewis, Juliana Weldon, Ari Jimenez and colleagues, with an educational mary jane from [employer]. Thrive Questionnaire Date Thrive assessed: 10/08/24 I am a: Patient What is your living situation today?: I have a steady place to live Within the past 12 months, did the food you bought not last and you didn't have the money to get more?: Never true Within the past 12 months, did you worry whether your food would run out before you got money to buy more?: Never true Do you have trouble paying for medicines?: No Do you have trouble getting transportation to medical appointments?: No Do you have trouble paying your heating and electricity bill?: No Do you have trouble taking care of your child, family member or friend?: No Do you have trouble with day-to-day activities such as bathing, preparing meals, shopping, managing finances, etc.?: No Are you currently unemployed and looking for a job?: No Are you interested in more education?: No Please select the resources that you would like help with: None Currently or been in a relationship where the following occur: No concerns reported THRIVE Score: 0 AUDIT C Alcohol Use Questionnaire (AUDIT-C) 1. How often do you have a drink containing alcohol?: Monthly or less 2. How many drinks containing alcohol do you have on a typical day when you are drinking?: 1 or 2 3. How often do you have six or more drinks on one occasion?: Never Total Score: 1 JASON-7 AMB Questionnaire JASON-7 Date JASON - 7 assessed: 10/08/24 Feeling nervous, anxious, or on edge: 0 = Not at all Not being able to stop or control worryin = Not at all Worrying too much about different things: 0 = Not at all Trouble relaxin = Not at all Being so restless that it is hard to sit still: 0 = Not at all Becoming easily annoyed or irritable: 0 = Not at all Feeling afraid as if something awful might happen: 0 = Not at all Total JASON-7 score (0-4 normal; 5-9 mild; 10-14 moderate; 15-21 severe): 0 Source: Developed by Drs. Fito Lewis, Juliana Weldon, Ari Jimenez and colleagues, with an educational mary jane from [employer]. Review of Systems Const Denies poor appetite and Denies weakness Eyes Denies no additional complaints ENT Reports Normal hearing present, Denies dizziness, Denies nasal congestion, Denies tinnitus and Denies sore throat Card Denies chest pain, Denies syncope, Denies rapid heart rate and Denies dyspnea Resp Denies cough and Denies dyspnea GI Denies change in stool character, Reports constipation, Denies diarrhea, Denies nausea and Denies vomiting Denies dysuria and Denies urinary frequency Neuro Reports Normal hearing present, Denies confusion, Denies dizziness, Denies syncope and Denies weakness Psych Denies confusion Physical exam (Primary Care) Vital Signs: Oxygen Delivery Method Room Air 10/08/24 08:51 BMI result Body Mass Index 37.7 Tobacco/Smoking Status: Tobacco use Status Tobacco use date assessed 10/08/24 10/08/24 08:54 Patient Tobacco Use Status Former Tobacco user 10/08/24 08:54 Tobacco use type Cigarette 10/08/24 08:54 e-Cigarette/Vaping Use Never Used 10/08/24 08:54 PHQ-9: PHQ-9 Score PHQ-9: Total score 0 10/08/24 08:54 Thrive Assessment: Date of Thrive Assessment Date Thrive assessed 10/08/24 10/08/24 08:54 Currently or been in a relationship where the following occur: No concerns reported Const General: No confusion Orientation/consciousness: No confusion HENMT Head: Yes normocephalic Ears: external ears normal and TM's normal bilaterally Face and sinus: Yes normal facial exam Mouth: moist mucous membranes Throat: Yes tonsils normal Eyes Conjunctivae: conjunctivae normal Pupils: Equal, round and reactive pupils present and Pupil accommodation reflex normal Direct Ophthalmoscopy: normal light reflex Neck Neck: No lymphadenopathy Thyroid: Thyroid normal Chest Chest palpation & inspection: normal inspection of the chest Resp Effort & Inspection: normal respiratory effort and no audible wheezes Auscultation: clear to auscultation bilaterally, no crackles, no wheezes and lung sounds not diminished Cardio Rate: regular rate Rhythm: regular rhythm Peripheral pulses: radial pulses present and dorsalis pedis present GI Other: guaiac negative , prostate N Palpation (GI): no masses Auscultation: normal bowel sounds and normoactive bowel sounds Male General Exam: Yes normal external exam Skin General skin exam: no rashes or lesions noted Rashes: no rashes Neuro General: No confusion Cranial nerves: Yes Equal, round and reactive pupils present and Yes Normal hearing present Cognition (Neuro): normal cognition Gait exam (Neuro): Normal gait present Motor exam (neuro): 5/5 motor strength present throughout Deep tendon reflexes (DTR's): Right brachioradialis reflex intensity grade: 2+, Left brachioradialis reflex intensity grade: 2+, Right patellar reflex intensity grade: 2+ and Left patellar reflex intensity grade: 2+ Extrem General: No edema Coding Level of Care Code Est Pt Prev Care 40-64y(27406) Diagnoses Annual physical exam Z00.00 Obesity (BMI 30-39.9) E66.9 Primary osteoarthritis of both knees M17.0 Laterality: bilateral Osteoarthritis type: primary Assessment & Plan Assessment & Plan (1) Annual physical exam: Code(s): Z00.00 - Encounter for general adult medical examination without abnormal findings Category: Medical Plan: Patient is advised to eat healthy, keep well hydrated, keep active and have adequate sleep. (2) Obesity (BMI 30-39.9): Code(s): E66.9 - Obesity, unspecified Category: Medical Plan: Diet and exercise to continue (3) Knee osteoarthritis: Code(s): M17.9 - Osteoarthritis of knee, unspecified Category: Medical Qualifiers: Laterality: bilateral Osteoarthritis type: primary Qualified Code(s): M17.0 - Bilateral primary osteoarthritis of knee Plan: Continue to lose the weight, continue to be active Plan History of Present Illness The patient is a 54-year-old male presenting for a physical examination and management of chronic conditions. The patient has a history of obesity, which has been associated with weight fluctuations. He has been attempting weight loss through diet and exercise, including activities such as walking and biking. The patient also has knee osteoarthritis, which has been managed with tramadol for pain as needed. He reports no significant pain during physical activities, indicating stable management of the condition. A recent blood test in July 2024 revealed mild leukopenia, but other parameters such as electrolytes, renal function, and liver function were within normal limits. The patient is on a regimen of B complex vitamins, calcium, vitamin D, and B12, which have been maintained at adequate levels. Hypertension is a concern, with recent fluctuations in blood pressure readings. The patient has been advised to monitor his blood pressure regularly and maintain a healthy lifestyle to manage this condition. Health Maintenance - Colon cancer screening: Up to date as of 2019 - Blood pressure monitoring: Advised to check regularly - Vaccinations: Shingles and tetanus shots up to date - Lifestyle: Encouraged to continue diet and exercise regimen Social History - Exercise: Engages in walking and biking regularly - Diet: Focus on healthy eating, including nonfat Bulgarian yogurt and oatmeal - Alcohol: Consumes alcohol infrequently, about once a month - Smoking: No current tobacco use Review of Systems - General: Denies fever, chills, or weight loss - Cardiovascular: Denies chest pain or palpitations - Respiratory: Denies dyspnea or cough - Gastrointestinal: Denies nausea, vomiting, diarrhea, or constipation - Neurological: Denies dizziness or syncope Physical Exam General: Cooperative, healthy appearing, comfortable, no acute distress and well developed Orientation: Patient oriented x3 Limitations: No limitations Head: Normal to inspection Ears: Hearing grossly normal bilaterally Nose: Normal external nose present Face and sinus: Normal facial exam Eyes: Appearance normal, both eyes and all related structures Neck: Normal visual inspection and Yes full ROM Respiratory: Normal respiratory effort and able to speak in complete sentences. Clear to auscultation bilaterally Cardiovascular: Regular rate and rhythm. Normal S1 and S2 GI: Normal to inspection. Soft to palpation and nontender Skin: No rashes or lesions noted Neuro: Patient oriented x3 Extremities: Normal to inspection Results - Labs: Blood test in July 2024 showed mild leukopenia, normal electrolytes, renal function, liver function, and cholesterol levels Plan The patient is advised to continue his current diet and exercise regimen to manage obesity and support weight loss efforts. Regular monitoring of blood pressure is recommended to manage hypertension, with a target of maintaining readings below 140/90 mmHg. For knee osteoarthritis, the patient should continue using tramadol as needed for pain management. Follow-up in three months is advised to reassess blood pressure and overall health status. Preventative care measures include maintaining up-to-date vaccinations and regular screenings, such as colon cancer screening, which is current. Patient was informed and verbally consented to the use of an ambient scribe for clinic note documentation during this visit. Discussion Notes During the visit, I discussed the importance of maintaining a healthy lifestyle to manage obesity and hypertension. We reviewed the patient's current medications and supplements, ensuring they are appropriate for his conditions. I emphasized the need for regular blood pressure monitoring and explained the potential risks of uncontrolled hypertension. The patient was informed about the importance of keeping vaccinations up to date and the status of his colon cancer screening. Patient Instructions - Continue your current diet and exercise routine to aid in weight management. - Monitor your blood pressure regularly and aim for readings below 140/90 mmHg. - Take tramadol as needed for knee pain. - Ensure vaccinations are up to date and follow up on any recommended screenings. - Schedule a follow-up appointment in three months to reassess your health status.
--- OUTSIDE RECORDS SUMMARY | 2024-10-08 09:17 | XMS_ITS | Clinical Summary ---
Author Organization [facility], Address [address] [address] Phone Care Team Providers Care Business Services Vice President Name Role Phone Jaspreet Chowdhury MD Primary Care Provider [phone] Allergies No known active allergies Medications traMADol (ULTRAM) 50 MG tablet Active ergocalciferol 1.25 MG (97509 UT) capsule TAKE 1 CAPSULE BY MOUTH [...] Colorectal Cancer Screening: Sigmoidoscopy 2017 Influenza Vaccine (#1) 2024 10/20/2019, 2019 [place] [address] Care Teams Business Services Vice President Relationship Specialty Start Date End Date Jaspreet Chowdhury MD [facility] [place] [address] [place] PCP - General 12/19/18
== END 2024-10-08 09:34 | disposition home or self-care (01) ==
LOC: HO.HMCH 08:47
PROVIDERS: PCP Internal Medicine; Visit Provider Internal Medicine
DX: Z00.00 Encounter for general adult medical examination without abnormal findings (principal); E66.9 Obesity, unspecified; M17.0 Bilateral primary osteoarthritis of knee; Z68.37 Body mass index [BMI] 37.0-37.9, adult